=== PATIENT | male | born 1950 | race Caucasian/White ===

== ENCOUNTER 2016-11-06 11:33 | Emergency (ER) | payer OTHER ==
[~2016-11-06] VITALS: Ht 185.4 cm; Wt 80.9 kg
[~2016-11-06 11:33] MED LIST: ADULT LOW DOSE81 M1 PO; ADVIL200 MG PO; ASPIR 8181 M1 PO; ASPIR-LOW81 MG PO; ASPIRIN81 M2 PO; ATORVASTATIN CA40 MG PO; AUGMENTIN875 MG PO; Actonel PO; Ascorbic Acid,Ester- PO; BACTRIM,SEPT1 TABLET PO; CHEMO MEDICATION; CIPRO500 MG PO; CIPROFLOXACIN500 M1 PO; CITALOPRAM HBR10 MG PO; CLEOCIN300 MG PO; CLINDAMYCIN HC300 MG PO; CLOPIDOGREL75 MG PO; COLACE100 MG PO; DICLOXACILLIN500 MG PO; DOXYCYCLINE HY100 MG PO; DULCOLAX5 MG PO; ENDOCET 5-3251 EACH PO; EXTRA STRENGTH500 M1 PO; FENTANYL1 EAC4 TD; FERROUS SULFAT324 M1 PO; FLEXERIL10 MG PO; GABAPENTIN300 MG PO; GLUCOPHAGE; GLUCOPHAGE1000 MG PO; GLUCOTROL5 MG PO; GLYBURIDE5 MG PO; GRALISE300 MG PO; HUMALOG; HUMALOG100 UNIT/1 SC; HUMULIN R100 UNITS/ SC; HYDROCODON-ACE1 EAC7 PO; KEFLEX500 MG PO; KEFLEX750 MG PO; KETOCONAZOLE60 GM TP; LANCETS1 EACH MC; LANTUS SQ; LANTUS100 UNIT/1 SQ; LEVAQUIN500 MG PO; LEVEMIR; LEVEMIR FL100 UNIT/1 SC; LEVEMIR FL100 UNITS/ SC; LEVEMIR100 UNIT/2 SC; LEVOFLOXACIN500 MG PO; LIDODERM 5% P1 PATCH TD; LISINOPRIL10 MG PO; LISINOPRIL2.5 MG PO; LOPRESSOR50 MG PO; METFORMIN HCL1000 MG PO; MOBIC15 MG PO; MOBIC7.5 MG PO; MOTRIN800 MG PO; NAPROSYN500 MG PO; NAPROXEN500 MG PO; NEURONTIN300 MG PO; NITROSTAT,NITR0.4 M1 SL; NORCO 5/3251 TABLET PO; NOVOLOG 10100 UNITS/ SC; NOVOLOG PE100 UNITS/ SC; NOVOLOG100 UNIT/2 SQ; OMEPRAZOLE20 MG PO; OXYCODONE HCL5 MG PO; OxyCONTIN PO; PEN-VEE K,VEET500 MG PO; PERCOCET 10/1 TABLET PO; PERCOCET 5-3251 EACH PO; PERCOCET 5/31 TABLET PO; PRILOSEC20 MG PO; PROTONIX40 MG PO; SENOKOT S,PE1 TABLET PO; SENOKOT,SENN1 TABLET PO; SKELAXIN800 MG PO; TARCEVA; TORADOL10 MG PO; TRAMADOL HCL50 MG PO; TYLENOL ARTHRI650 MG PO; TYLENOL EXTRA500 MG PO; TYLENOL REGULA325 MG PO; TYLENOL WITH C1 EACH PO; Tylenol Regular Stre PO; ULTRACET1 TABLET PO; ULTRAM50 MG PO; VALIUM5 MG PO; VANCOMYCIN1 GM/150 M IV; VICODIN 5-3001 EACH PO; ZESTRIL,PRINIVI20 MG PO; ZESTRIL10 MG PO; ZESTRIL2.5 MG PO; ZOFRAN ODT8 MG PO; Zestril,Prinivil PO; [UNRECOGNIZED DRUG - REMARK]
[2016-11-06 13:31] VITALS: BP 148/68
== END 2016-11-06 13:31 | disposition home or self-care (01) ==
LOC: EME 11:33
DX: M54.9 Dorsalgia, unspecified (principal); M25.561 Pain in right knee; M25.562 Pain in left knee; W18.30XA Fall on same level, unspecified, initial encounter; Y93.01 Activity, walking, marching and hiking; E11.9 Type 2 diabetes mellitus without complications; E78.5 Hyperlipidemia, unspecified; I10 Essential (primary) hypertension; I25.2 Old myocardial infarction; Z85.028 Personal history of other malignant neoplasm of stomach; Z89.512 Acquired absence of left leg below knee; Z79.84 Long term (current) use of oral hypoglycemic drugs; F17.200 Nicotine dependence, unspecified, uncomplicated
CPT/HCPCS: 72100; 99281; 99283

== ENCOUNTER 2016-11-10 11:31 | Emergency (ER) | payer OTHER ==
[~2016-11-10] VITALS: Ht 185.4 cm; Wt 80.9 kg
[2016-11-10 12:13] VITALS: BP 139/92
== END 2016-11-10 12:15 | disposition left against medical advice (07) ==
LOC: EME 11:31
DX: M79.604 Pain in right leg (principal); M79.605 Pain in left leg; M54.9 Dorsalgia, unspecified; W19.XXXA Unspecified fall, initial encounter; Z53.21 Procedure and treatment not carried out due to patient leaving prior to being seen by health care provider

== ENCOUNTER 2016-11-21 16:47 | Emergency (ER) | payer OTHER ==
[~2016-11-21] VITALS: Ht 177.8 cm; Wt 72.7 kg
[2016-11-21 16:50] VITALS: BP 163/66
== END 2016-11-21 17:53 | disposition left against medical advice (07) ==
LOC: EME 16:47
DX: R07.81 Pleurodynia (principal); Z91.81 History of falling; R29.6 Repeated falls; Z53.21 Procedure and treatment not carried out due to patient leaving prior to being seen by health care provider

== ENCOUNTER 2016-11-23 14:11 | Emergency (ER) | payer OTHER ==
[~2016-11-23] VITALS: Ht 185.4 cm; Wt 80.9 kg
[2016-11-23 15:35] VITALS: BP 170/65
== END 2016-11-23 15:56 | disposition home or self-care (01) ==
LOC: EME 14:11
DX: M25.562 Pain in left knee (principal); M54.9 Dorsalgia, unspecified; Z91.81 History of falling; Z88.6 Allergy status to analgesic agent; Z87.891 Personal history of nicotine dependence; E11.9 Type 2 diabetes mellitus without complications; Z79.84 Long term (current) use of oral hypoglycemic drugs; Z79.4 Long term (current) use of insulin
CPT/HCPCS: 99281; 99283

== ENCOUNTER 2016-12-15 13:48 | Emergency (ER) | payer OTHER ==
[~2016-12-15] VITALS: Ht 185.4 cm; Wt 80.9 kg
[2016-12-15 13:54] VITALS: BP 142/76
[2016-12-15] MEDS ORDERED: VIBRAMYCIN100 MG PO (16:14)
[2016-12-15] MEDS ORDERED: MOBIC7.5 MG PO (16:14)
== END 2016-12-15 16:48 | disposition home or self-care (01) ==
LOC: EME 13:48
DX: T87.9 Unspecified complications of amputation stump (principal); L89.899 Pressure ulcer of other site, unspecified stage; Z89.512 Acquired absence of left leg below knee; F17.200 Nicotine dependence, unspecified, uncomplicated; Z59.0 Homelessness; Z88.6 Allergy status to analgesic agent; E11.9 Type 2 diabetes mellitus without complications; Z79.4 Long term (current) use of insulin; Z79.84 Long term (current) use of oral hypoglycemic drugs; Z85.028 Personal history of other malignant neoplasm of stomach; E78.5 Hyperlipidemia, unspecified; I10 Essential (primary) hypertension; I25.2 Old myocardial infarction; Z91.81 History of falling; Z91.19 Patient's noncompliance with other medical treatment and regimen
CPT/HCPCS: 99281; 99284

== ENCOUNTER 2016-12-17 00:07 | Emergency (ER) | payer OTHER ==
[~2016-12-17] VITALS: Ht 185.4 cm; Wt 80.9 kg
[~2016-12-17 00:07] MED LIST changes: +VIBRAMYCIN100 MG PO
[2016-12-17 00:11] VITALS: BP 161/81
[2016-12-17] MEDS ORDERED: NAPROSYN500 MG PO (01:55)
== END 2016-12-17 02:12 | disposition home or self-care (01) ==
LOC: EME 00:07
DX: M54.5 Low back pain (principal); M79.604 Pain in right leg; Z91.81 History of falling; Z89.512 Acquired absence of left leg below knee; Z79.4 Long term (current) use of insulin; F17.200 Nicotine dependence, unspecified, uncomplicated
CPT/HCPCS: 99281; 99283

== ENCOUNTER 2016-12-20 20:46 | Emergency (ER) | payer OTHER ==
[~2016-12-20] VITALS: Ht 185.4 cm; Wt 72.0 kg
[2016-12-20 21:06] VITALS: BP 158/84
== END 2016-12-20 21:30 | disposition left against medical advice (07) ==
LOC: EME 20:46
DX: M79.604 Pain in right leg (principal); Z53.21 Procedure and treatment not carried out due to patient leaving prior to being seen by health care provider

== ENCOUNTER 2016-12-26 23:49 | Emergency (ER) | payer OTHER ==
[~2016-12-26] VITALS: Ht 185.4 cm; Wt 72.0 kg
[2016-12-26 23:52] VITALS: BP 173/64
== END 2016-12-27 00:41 | disposition left against medical advice (07) ==
LOC: EME 23:49
DX: M79.605 Pain in left leg (principal); Z53.21 Procedure and treatment not carried out due to patient leaving prior to being seen by health care provider
CPT/HCPCS: 99281; 99283

== ENCOUNTER 2017-01-13 18:02 | Emergency (ER) | payer OTHER ==
[~2017-01-13] VITALS: Ht 185.4 cm; Wt 84.0 kg
[2017-01-13 18:40] VITALS: BP 162/66
== END 2017-01-13 21:10 | disposition left against medical advice (07) ==
LOC: EME 18:02
DX: M79.605 Pain in left leg (principal); Z53.21 Procedure and treatment not carried out due to patient leaving prior to being seen by health care provider; F17.200 Nicotine dependence, unspecified, uncomplicated; E11.9 Type 2 diabetes mellitus without complications; I10 Essential (primary) hypertension

== ENCOUNTER 2017-01-17 16:53 | Emergency (ER) | payer OTHER ==
[~2017-01-17] VITALS: Ht 182.9 cm; Wt 81.8 kg
[2017-01-17] MEDS ORDERED: TESSALON200 MG PO (18:16)
[2017-01-17 18:55] VITALS: BP 140/66
== END 2017-01-17 18:56 | disposition home or self-care (01) ==
LOC: EME 16:53
DX: J06.9 Acute upper respiratory infection, unspecified (principal); F17.200 Nicotine dependence, unspecified, uncomplicated
CPT/HCPCS: 71010; 99281; 99284

== ENCOUNTER 2017-01-26 02:56 | Emergency (ER) | payer OTHER ==
[~2017-01-26] VITALS: Ht 182.9 cm; Wt 81.8 kg
[~2017-01-26 02:56] MED LIST changes: +TESSALON200 MG PO
[2017-01-26] MEDS ORDERED: KEFLEX500 MG PO (04:07)
[2017-01-26 04:27] VITALS: BP 166/65
== END 2017-01-26 04:33 | disposition home or self-care (01) ==
LOC: EXP 02:56 → EME 02:56 → EXP 04:33
DX: S80.02XA Contusion of left knee, initial encounter (principal); L03.116 Cellulitis of left lower limb; W10.8XXA Fall (on) (from) other stairs and steps, initial encounter
CPT/HCPCS: 73564; 99281; 99283

== ENCOUNTER 2017-01-26 23:53 | Emergency (ER) | payer OTHER ==
[~2017-01-26] VITALS: Ht 182.9 cm; Wt 82.7 kg
[2017-01-27] VITALS: BP 151/61
== END 2017-01-27 09:06 | disposition home or self-care (01) ==
LOC: EME 23:53
DX: S80.01XA Contusion of right knee, initial encounter (principal); S80.211A Abrasion, right knee, initial encounter; W18.30XA Fall on same level, unspecified, initial encounter
CPT/HCPCS: 73564; 99281; 99283

== ENCOUNTER 2017-02-01 07:09 | Emergency (ER) | payer OTHER ==
[~2017-02-01] VITALS: Ht 182.9 cm; Wt 82.0 kg
[2017-02-01 08:36] LABS: BASOPHIL COUNT 0.1 K/uL (0-0.1); EOSINOPHIL (%) 4.3 % (0-5); EOSINOPHIL COUNT 0.3 K/uL (0-0.3); IMMATURE GRANULOCYTE (%) 0.3 % (0.0-0.7); INSTRUMENT ABS NEUTROPHIL CT 3.5 K/uL; LYMPHOCYTE COUNT 2.4 K/uL (1.0-2.8); MCH 28.1 PG (29.0-34.0); MCHC 33.6 G/DL (30.0-36.0); MCV 83.7 FL (86-99); MEAN PLAT.VOLUME 12.2 uM^3 (9.0-12.4); MONOCYTE (%) 9.3 % (3-12); MONOCYTE COUNT 0.6 K/uL (0-0.8); NEUTROPHIL COUNT 3.5 K/uL (1.8-6.4); PLATELET COUNT 174 K/uL (156-360); RBC DIS.WIDTH-CV 12.3 % (11.8-14.6); RBC DIS.WIDTH-SD 37.2 % (39-53); RED BLOOD COUNT 4.66 M/uL (4.00-5.50); WHITE BLOOD COUNT 6.9 K/uL (4.1-10.2)
[2017-02-01 08:48] LABS: CHLORIDE 98 mEq/L (99-109); POTASSIUM 4.3 mEq/L (3.7-5.4); SODIUM 131 mEq/L (136-147)
[2017-02-01 08:50] LABS: GLUCOSE 618 mg/dL (70-99)
[2017-02-01 08:51] LABS: ANION GAP 11 MEQ/L (2-14)
[2017-02-01 08:54] LABS: GFR ESTIMATE (CALCULATED) 59 mL/min/
[2017-02-01 08:55] LABS: UREA NITROGEN (BUN) 22 mg/dL (9-23)
[2017-02-01 09:00] VITALS: BP 00/00
[2017-02-01 12:25] LABS: POINT-OF-CARE METER ID UU13113702
== END 2017-02-01 10:10 | disposition left against medical advice (07) ==
LOC: EME 07:09
PROVIDERS: Emergency Medicine; Physician Assistant
DX: E11.65 Type 2 diabetes mellitus with hyperglycemia (principal); S80.02XA Contusion of left knee, initial encounter; M54.9 Dorsalgia, unspecified; W10.9XXA Fall (on) (from) unspecified stairs and steps, initial encounter; Z91.81 History of falling; Z79.4 Long term (current) use of insulin; Z89.512 Acquired absence of left leg below knee; Z86.14 Personal history of Methicillin resistant Staphylococcus aureus infection; F17.200 Nicotine dependence, unspecified, uncomplicated; Z59.0 Homelessness
CPT/HCPCS: 73564; 80048; 82948; 85025; 87070; 87075; 87205

== ENCOUNTER 2017-02-23 17:46 | Emergency (ER) | payer OTHER ==
[~2017-02-23] VITALS: Ht 182.9 cm; Wt 85.0 kg
[2017-02-23 18:53] VITALS: BP 148/81
== END 2017-02-23 19:01 | disposition home or self-care (01) ==
LOC: EME 17:46
DX: M25.561 Pain in right knee (principal); Z91.81 History of falling; G89.29 Other chronic pain; E11.9 Type 2 diabetes mellitus without complications; Z79.4 Long term (current) use of insulin; F17.200 Nicotine dependence, unspecified, uncomplicated
CPT/HCPCS: 99281; 99282

== ENCOUNTER 2017-02-27 17:51 | Emergency (ER) | payer OTHER ==
[~2017-02-27] VITALS: Ht 188 cm; Wt 90.9 kg
[2017-02-27 19:46] VITALS: BP 130/80
== END 2017-02-27 19:46 | disposition home or self-care (01) ==
LOC: EME 17:51
DX: S80.01XA Contusion of right knee, initial encounter (principal); W19.XXXA Unspecified fall, initial encounter
CPT/HCPCS: 73560; 99281; 99284

== ENCOUNTER 2017-03-05 15:57 | Emergency (ER) | payer OTHER ==
[~2017-03-05] VITALS: Ht 182.9 cm; Wt 80.9 kg
[2017-03-05 16:00] VITALS: BP 143/64
== END 2017-03-05 16:27 | disposition home or self-care (01) ==
LOC: EME 15:57
DX: S80.11XA Contusion of right lower leg, initial encounter (principal); W10.9XXA Fall (on) (from) unspecified stairs and steps, initial encounter; Z91.81 History of falling; E11.9 Type 2 diabetes mellitus without complications; Z79.84 Long term (current) use of oral hypoglycemic drugs; Z79.4 Long term (current) use of insulin; F17.200 Nicotine dependence, unspecified, uncomplicated
CPT/HCPCS: 99281; 99283

== ENCOUNTER 2017-03-18 09:46 | Emergency (ER) | payer OTHER ==
[~2017-03-18] VITALS: Ht 195.6 cm; Wt 80.9 kg
[2017-03-18 11:20] VITALS: BP 134/57
== END 2017-03-18 11:21 | disposition left against medical advice (07) ==
LOC: EME 09:46
DX: M25.561 Pain in right knee (principal); M54.9 Dorsalgia, unspecified; W18.30XA Fall on same level, unspecified, initial encounter; R29.6 Repeated falls; Z89.612 Acquired absence of left leg above knee; Z59.0 Homelessness; F17.200 Nicotine dependence, unspecified, uncomplicated
CPT/HCPCS: 99281; 99283

== ENCOUNTER 2017-03-19 18:28 | Emergency (ER) | payer OTHER ==
[~2017-03-19] VITALS: Ht 185.4 cm; Wt 80.9 kg
[2017-03-19 19:30] VITALS: BP 00/0
== END 2017-03-19 19:59 | disposition left against medical advice (07) ==
LOC: EME 18:28
DX: S09.8XXA Other specified injuries of head, initial encounter (principal); S00.81XA Abrasion of other part of head, initial encounter; S60.811A Abrasion of right wrist, initial encounter; X58.XXXA Exposure to other specified factors, initial encounter; E11.9 Type 2 diabetes mellitus without complications; Z79.4 Long term (current) use of insulin; Z59.8 Other problems related to housing and economic circumstances; F17.200 Nicotine dependence, unspecified, uncomplicated
CPT/HCPCS: 99281; 99284

== ENCOUNTER 2017-03-28 22:52 | Emergency (ER) | payer OTHER ==
[~2017-03-28] VITALS: Ht 177.8 cm; Wt 75.0 kg
[2017-03-28 23:09] VITALS: BP 138/88
== END 2017-03-29 04:09 | disposition home or self-care (01) ==
LOC: EME 22:52
DX: S93.401A Sprain of unspecified ligament of right ankle, initial encounter (principal); W01.0XXA Fall on same level from slipping, tripping and stumbling without subsequent striking against object, initial encounter; E11.9 Type 2 diabetes mellitus without complications; I10 Essential (primary) hypertension; Z85.028 Personal history of other malignant neoplasm of stomach; Z89.512 Acquired absence of left leg below knee; F17.200 Nicotine dependence, unspecified, uncomplicated
CPT/HCPCS: 73610; 73630; 99281; 99284

== ENCOUNTER 2017-04-18 18:58 | Observation (INO) | payer OTHER ==
[~2017-04-18] VITALS: Ht 185.4 cm; Wt 80.9 kg
[2017-04-18 20:16] LABS: CARBON DIOXIDE (BICARBONATE) 20.8 MEQ/L (20-31)
[2017-04-18 20:17] LABS: HEMATOCRIT 42.7 % (38.0-50.0); MCH 29.3 PG (29.0-34.0); MCHC 35.6 G/DL (30.0-36.0); MCV 82.4 FL (86-99); MEAN PLAT.VOLUME 12.3 uM^3 (9.0-12.4); PLATELET COUNT 174 K/uL (156-360); RBC DIS.WIDTH-CV 12.2 % (11.8-14.6); RBC DIS.WIDTH-SD 36.9 % (39-53); RED BLOOD COUNT 5.18 M/uL (4.00-5.50); WHITE BLOOD COUNT 10.4 K/uL (4.1-10.2)
[2017-04-18 20:23] LABS: CHLORIDE 98 mEq/L (99-109); POTASSIUM 4.2 mEq/L (3.7-5.4); SODIUM 128 mEq/L (136-147)
[2017-04-18 20:26] LABS: ANION GAP 12 MEQ/L (2-14)
[2017-04-18 20:29] LABS: GFR ESTIMATE (CALCULATED) 38 mL/min/
[2017-04-18 20:30] LABS: UREA NITROGEN (BUN) 24 mg/dL (9-23)
[2017-04-18 20:33] LABS: GLUCOSE 629 mg/dL (70-99)
[2017-04-18 22:52] LABS: POINT-OF-CARE METER ID UU13113702
[2017-04-19 02:59] LABS: ADD MIUA? YES; BILIRUBIN NEGATIVE; BLOOD SMALL; COLOR YELLOW ((YELLOW)); GLUCOSE (STRIP) >=500; KETONES NEGATIVE; LEUKOCYTES TRACE; NITRITE NEGATIVE; PROTEIN (STRIP) 30; SPECIFIC GRAVITY 1.021 (1.000-1.030); UROBILINOGEN 0.2 MG/DL (0.2-1.0)
[2017-04-19 03:12] LABS: BACTERIA NONE SEEN /HPF; EPITHELIAL CELLS RARE /HPF; MUCUS NONE SEEN /LPF; RED BLOOD CELLS 0-5 /HPF (0-5); UCUL ADDED? NO
[2017-04-19 06:19] LABS: ANION GAP 7 MEQ/L (2-14); CHLORIDE 109 MEQ/L (99-109); POTASSIUM 3.6 MEQ/L (3.7-5.4); SAMPLE HEMOLYSIS CHECK 0; SAMPLE ICTERIC CHECK 0; SAMPLE LIPEMIA CHECK 0; UREA NITROGEN (BUN) 17 mg/dL (9-23)
[2017-04-19 06:35] LABS: GFR ESTIMATE (CALCULATED) > 59 mL/min/; GLUCOSE 277 mg/dL (70-99); SODIUM 136 MEQ/L (136-147)
[2017-04-19 09:36] LABS: POINT-OF-CARE METER ID UU13113702
[2017-04-19 12:28] LABS: POINT-OF-CARE METER ID UU14174225
[2017-04-19 13:09] LABS: Estimated Average Glucose 372 mg/dL (70-123); HEMOGLOBIN A1c (GLYCOHEMOGLOB) 14.6 % HGB (Below 5.7)
[2017-04-19 16:00] VITALS: BP 145/66
[2017-04-19 17:09] LABS: POINT-OF-CARE METER ID UU14174225
[2017-04-19 19:32] VITALS: BP 117/58
[2017-04-19 21:51] LABS: POINT-OF-CARE METER ID UU14174225
[2017-04-20 00:01] VITALS: BP 156/70
[2017-04-20 04:07] VITALS: BP 164/71
[2017-04-20 06:53] LABS: HEMATOCRIT 36.2 % (38.0-50.0); MCH 28.9 PG (29.0-34.0); MEAN PLAT.VOLUME 12.2 uM^3 (9.0-12.4); PLATELET COUNT 150 K/uL (156-360); RBC DIS.WIDTH-CV 12.5 % (11.8-14.6); RBC DIS.WIDTH-SD 38.4 % (39-53); RED BLOOD COUNT 4.26 M/uL (4.00-5.50); WHITE BLOOD COUNT 8.2 K/uL (4.1-10.2)
[2017-04-20 07:15] LABS: ANION GAP 7 MEQ/L (2-14); CHLORIDE 113 MEQ/L (99-109); GFR ESTIMATE (CALCULATED) > 59 mL/min/; GLUCOSE 51 mg/dL (70-99); POTASSIUM 3.6 MEQ/L (3.7-5.4); SAMPLE HEMOLYSIS CHECK 0; SAMPLE ICTERIC CHECK 0; SAMPLE LIPEMIA CHECK 0; SODIUM 142 MEQ/L (136-147); UREA NITROGEN (BUN) 14 mg/dL (9-23)
[2017-04-20 08:07] VITALS: BP 133/50
[2017-04-20 11:38] VITALS: BP 157/68
[2017-04-20 11:55] LABS: POINT-OF-CARE METER ID UU14174225
[2017-04-20] MEDS ORDERED: FAMOTIDINE20 MG PO (13:45)
[2017-04-20] MEDS ORDERED: NOVOLOG PE100 UNITS/ SC ×2 (13:45→16:46)
[2017-04-20] MEDS ORDERED: HUMULIN N100 UNITS/ SC (14:03)
[2017-04-20 15:14] VITALS: BP 141/64
[2017-04-20 16:36] LABS: POINT-OF-CARE METER ID UU14174225
== END 2017-04-20 18:07 | disposition home or self-care (01) ==
LOC: EME 18:58 → 5SOUTH 04-19 03:06 → EDOF 04-19 03:06 → 5SOUTH 04-19 03:06
PROVIDERS: Emergency Medicine; Hospitalist; Internal Medicine
DX: E11.65 Type 2 diabetes mellitus with hyperglycemia (principal); Z91.19 Patient's noncompliance with other medical treatment and regimen; N17.9 Acute kidney failure, unspecified; E87.2 Acidosis; E86.0 Dehydration; E87.1 Hypo-osmolality and hyponatremia; M79.604 Pain in right leg; E11.40 Type 2 diabetes mellitus with diabetic neuropathy, unspecified; E11.51 Type 2 diabetes mellitus with diabetic peripheral angiopathy without gangrene; Z79.4 Long term (current) use of insulin; Z89.512 Acquired absence of left leg below knee
CPT/HCPCS: 71020; 73610; 80048; 81003; 82803; 82948; 83036; 83605; 85027; 87086; 93971; 99281; 99285; G0378; J0696; J1644; J1815; J7030; J7050

== ENCOUNTER 2017-05-02 09:05 | Emergency (ER) | payer OTHER ==
[~2017-05-02] VITALS: Ht 186.7 cm; Wt 82.2 kg
[~2017-05-02 09:05] MED LIST changes: +FAMOTIDINE20 MG PO; +HUMULIN N100 UNITS/ SC
[2017-05-02 14:38] VITALS: BP 180/61
== END 2017-05-02 14:39 | disposition home or self-care (01) ==
LOC: EME 09:05
DX: S93.401A Sprain of unspecified ligament of right ankle, initial encounter (principal); S20.211A Contusion of right front wall of thorax, initial encounter; S80.11XA Contusion of right lower leg, initial encounter; R51 Headache; W19.XXXA Unspecified fall, initial encounter; Z89.512 Acquired absence of left leg below knee; E11.9 Type 2 diabetes mellitus without complications; Z79.84 Long term (current) use of oral hypoglycemic drugs; F17.200 Nicotine dependence, unspecified, uncomplicated
CPT/HCPCS: 71020; 73610; 99281; 99283

== ENCOUNTER 2017-05-03 15:58 | Emergency (ER) | payer OTHER | END 2017-05-03 16:20 | disposition left against medical advice (07) | LOC: EME 15:58 | DX: M79.604 Pain in right leg (principal); Z53.21 Procedure and treatment not carried out due to patient leaving prior to being seen by health care provider ==

== ENCOUNTER 2017-05-06 08:26 | Emergency (ER) | payer OTHER ==
[~2017-05-06] VITALS: Ht 182.9 cm; Wt 85.2 kg
[2017-05-06 12:51] LABS: ADD MIUA? YES; BILIRUBIN NEGATIVE; BLOOD SMALL; COLOR YELLOW ((YELLOW)); GLUCOSE (STRIP) >=500; KETONES NEGATIVE; LEUKOCYTES MODERATE; NITRITE NEGATIVE; PROTEIN (STRIP) 100; SPECIFIC GRAVITY 1.029 (1.000-1.030); UROBILINOGEN 0.2 MG/DL (0.2-1.0)
[2017-05-06 13:01] LABS: BACTERIA NONE SEEN /HPF; EPITHELIAL CELLS RARE /HPF; MUCUS NONE SEEN /LPF; WHITE BLOOD CELLS 30-40 /HPF (0-5)
[2017-05-06 14:55] LABS: BASOPHIL COUNT 0.1 K/uL (0-0.1); EOSINOPHIL COUNT 0.3 K/uL (0-0.3); HEMATOCRIT 42.2 % (38.0-50.0); IMMATURE GRANULOCYTE (%) 0.4 % (0.0-0.7); INSTRUMENT ABS NEUTROPHIL CT 3.9 K/uL; LYMPHOCYTE COUNT 2.6 K/uL (1.0-2.8); MCH 28.5 PG (29.0-34.0); MCHC 33.9 G/DL (30.0-36.0); MCV 84.2 FL (86-99); MEAN PLAT.VOLUME 11.9 uM^3 (9.0-12.4); MONOCYTE (%) 8.9 % (3-12); MONOCYTE COUNT 0.7 K/uL (0-0.8); NEUTROPHIL (%) 51.9 % (45-76); NEUTROPHIL COUNT 3.9 K/uL (1.8-6.4); PLATELET COUNT 158 K/uL (156-360); RBC DIS.WIDTH-CV 12.7 % (11.8-14.6); RBC DIS.WIDTH-SD 38.4 % (39-53); RED BLOOD COUNT 5.01 M/uL (4.00-5.50); WHITE BLOOD COUNT 7.6 K/uL (4.1-10.2)
[2017-05-06 15:13] LABS: CHLORIDE 103 mEq/L (99-109); POTASSIUM 3.3 mEq/L (3.7-5.4); SODIUM 137 mEq/L (136-147)
[2017-05-06 15:15] LABS: GLUCOSE 341 mg/dL (70-99)
[2017-05-06 15:16] LABS: ANION GAP 8 MEQ/L (2-14)
[2017-05-06 15:17] LABS: TOTAL BILIRUBIN 0.7 mg/dL (0.0-1.0)
[2017-05-06] MEDS ORDERED: KEFLEX500 MG PO (15:18)
[2017-05-06 15:19] LABS: ALKALINE PHOSPHATASE 82 IU/L (3-129); GFR ESTIMATE (CALCULATED) > 59 mL/min/
[2017-05-06 15:20] LABS: UREA NITROGEN (BUN) 17 mg/dL (9-23)
[2017-05-06 15:22] LABS: LIPASE 19 U/L (1.0-51.0)
[2017-05-06] MEDS ORDERED: TRAMADOL HCL50 MG PO (15:36)
[2017-05-06 15:39] VITALS: BP 192/59
== END 2017-05-06 15:40 | disposition home or self-care (01) ==
LOC: EME 08:26
PROVIDERS: Physician Assistant
DX: M79.604 Pain in right leg (principal); N39.0 Urinary tract infection, site not specified; E11.9 Type 2 diabetes mellitus without complications; G89.29 Other chronic pain; Z89.512 Acquired absence of left leg below knee; Z91.81 History of falling; Z79.4 Long term (current) use of insulin
CPT/HCPCS: 80053; 81003; 83690; 85025; 87086; 93971; 99281; 99283

== ENCOUNTER 2017-05-10 09:24 | Emergency (ER) | payer OTHER ==
[~2017-05-10] VITALS: Ht 182.9 cm; Wt 85.2 kg
[2017-05-10 09:53] VITALS: BP 154/61
== END 2017-05-10 10:41 | disposition left against medical advice (07) ==
LOC: EME 09:24
DX: M79.604 Pain in right leg (principal); R11.0 Nausea; G89.29 Other chronic pain; Z53.21 Procedure and treatment not carried out due to patient leaving prior to being seen by health care provider

== ENCOUNTER 2017-05-10 16:07 | Emergency (ER) | payer OTHER | END 2017-05-10 16:45 | disposition left against medical advice (07) | LOC: EME 16:07 | DX: M79.604 Pain in right leg (principal); Z53.21 Procedure and treatment not carried out due to patient leaving prior to being seen by health care provider ==

== ENCOUNTER 2017-05-17 10:22 | Emergency (ER) | payer OTHER ==
[~2017-05-17] VITALS: Ht 182.9 cm; Wt 85.2 kg
[2017-05-17 11:01] LABS: HEMATOCRIT 41.9 % (38.0-50.0); MCH 28.5 PG (29.0-34.0); MCHC 34.1 G/DL (30.0-36.0); MCV 83.6 FL (86-99); MEAN PLAT.VOLUME 12.1 uM^3 (9.0-12.4); PLATELET COUNT 164 K/uL (156-360); RBC DIS.WIDTH-CV 12.5 % (11.8-14.6); RBC DIS.WIDTH-SD 38.4 % (39-53); RED BLOOD COUNT 5.01 M/uL (4.00-5.50); WHITE BLOOD COUNT 7.1 K/uL (4.1-10.2)
[2017-05-17 11:14] LABS: CHLORIDE 101 mEq/L (99-109); SODIUM 138 mEq/L (136-147)
[2017-05-17 11:16] LABS: GLUCOSE 379 mg/dL (70-99)
[2017-05-17 11:18] LABS: ANION GAP 15 MEQ/L (2-14); TOTAL BILIRUBIN 0.9 mg/dL (0.0-1.0)
[2017-05-17 11:20] LABS: ALKALINE PHOSPHATASE 74 IU/L (3-129); GFR ESTIMATE (CALCULATED) 54 mL/min/
[2017-05-17 11:21] LABS: UREA NITROGEN (BUN) 18 mg/dL (9-23)
[2017-05-17 12:41] LABS: POINT-OF-CARE METER ID UU13113702
[2017-05-17 13:37] VITALS: BP 141/49
== END 2017-05-17 13:38 | disposition home or self-care (01) ==
LOC: EME → EDBD 10:22 → EME 13:38
PROVIDERS: Nurse Practitioner Family
DX: E11.65 Type 2 diabetes mellitus with hyperglycemia (principal); T38.3X6A Underdosing of insulin and oral hypoglycemic [antidiabetic] drugs, initial encounter; Z91.120 Patient's intentional underdosing of medication regimen due to financial hardship; Z79.4 Long term (current) use of insulin; F17.200 Nicotine dependence, unspecified, uncomplicated; I25.2 Old myocardial infarction; Z79.84 Long term (current) use of oral hypoglycemic drugs
CPT/HCPCS: 80053; 81003; 82948; 85027; 99281; 99284; J2405; J7030

== ENCOUNTER 2017-05-17 21:14 | Emergency (ER) | payer OTHER ==
[~2017-05-17] VITALS: Ht 182.9 cm; Wt 78.0 kg
[2017-05-17 23:22] LABS: MCH 28.9 PG (29.0-34.0); MCHC 34.4 G/DL (30.0-36.0); MCV 84.2 FL (86-99); MEAN PLAT.VOLUME 11.8 uM^3 (9.0-12.4); PLATELET COUNT 163 K/uL (156-360); RBC DIS.WIDTH-CV 12.4 % (11.8-14.6); RBC DIS.WIDTH-SD 38.4 % (39-53); RED BLOOD COUNT 4.63 M/uL (4.00-5.50); WHITE BLOOD COUNT 7.8 K/uL (4.1-10.2)
[2017-05-17 23:38] LABS: CHLORIDE 104 mEq/L (99-109); POTASSIUM 3.9 mEq/L (3.7-5.4); SODIUM 140 mEq/L (136-147)
[2017-05-17 23:40] LABS: GLUCOSE 349 mg/dL (70-99)
[2017-05-17 23:41] LABS: ANION GAP 11 MEQ/L (2-14)
[2017-05-17 23:43] LABS: GFR ESTIMATE (CALCULATED) 54 mL/min/
[2017-05-17 23:44] LABS: UREA NITROGEN (BUN) 16 mg/dL (9-23)
[2017-05-18 00:34] VITALS: BP 154/70
== END 2017-05-18 00:49 | disposition home or self-care (01) ==
LOC: EME 21:14
PROVIDERS: Emergency Medicine
DX: S20.211A Contusion of right front wall of thorax, initial encounter (principal); M25.561 Pain in right knee; M79.671 Pain in right foot; W07.XXXA Fall from chair, initial encounter; E11.65 Type 2 diabetes mellitus with hyperglycemia; Z79.84 Long term (current) use of oral hypoglycemic drugs; R10.9 Unspecified abdominal pain; R11.10 Vomiting, unspecified; F17.200 Nicotine dependence, unspecified, uncomplicated
CPT/HCPCS: 71101; 73560; 73630; 80048; 85027; 94640; 99281; 99285

== ENCOUNTER 2017-05-19 11:28 | Emergency (ER) | payer OTHER ==
[~2017-05-19] VITALS: Ht 185.4 cm; Wt 81.0 kg
[2017-05-19 12:34] LABS: POINT-OF-CARE METER ID UU13113778
[2017-05-19 12:51] VITALS: BP 171/74
== END 2017-05-19 12:52 | disposition home or self-care (01) ==
LOC: EME 11:28
PROVIDERS: Nurse Practitioner Family
DX: E11.65 Type 2 diabetes mellitus with hyperglycemia (principal); M25.551 Pain in right hip; M79.601 Pain in right arm; M79.604 Pain in right leg; Z89.512 Acquired absence of left leg below knee; W10.9XXA Fall (on) (from) unspecified stairs and steps, initial encounter; Y92.007 Garden or yard of unspecified non-institutional (private) residence as the place of occurrence of the external cause; Z79.4 Long term (current) use of insulin; F17.200 Nicotine dependence, unspecified, uncomplicated
CPT/HCPCS: 82948; 99281; 99283

== ENCOUNTER 2017-05-22 15:10 | Emergency (ER) | payer OTHER | END 2017-05-22 15:48 | disposition left against medical advice (07) | LOC: EME 15:10 | DX: Z04.3 Encounter for examination and observation following other accident (principal); Z53.21 Procedure and treatment not carried out due to patient leaving prior to being seen by health care provider ==

== ENCOUNTER 2017-05-24 14:38 | Emergency (ER) | payer OTHER | END 2017-05-24 17:00 | disposition left against medical advice (07) | LOC: EME 14:38 | DX: M79.604 Pain in right leg (principal); Z53.21 Procedure and treatment not carried out due to patient leaving prior to being seen by health care provider ==

== ENCOUNTER 2017-05-26 04:04 | Emergency (ER) | payer OTHER ==
[~2017-05-26] VITALS: Ht 182.9 cm; Wt 79.9 kg
[2017-05-26 04:56] VITALS: BP 185/75
== END 2017-05-26 04:56 | disposition home or self-care (01) ==
LOC: EME → EDBD 04:04 → EME 04:56
DX: S93.401A Sprain of unspecified ligament of right ankle, initial encounter (principal); W10.9XXA Fall (on) (from) unspecified stairs and steps, initial encounter; F17.200 Nicotine dependence, unspecified, uncomplicated
CPT/HCPCS: 73564; 73610; 99281; 99283

== ENCOUNTER 2017-05-26 21:31 | Emergency (ER) | payer OTHER ==
[~2017-05-26] VITALS: Ht 185.4 cm; Wt 80.9 kg
[2017-05-26 23:07] VITALS: BP 137/62
== END 2017-05-26 23:08 | disposition home or self-care (01) ==
LOC: EME 21:31
DX: M79.604 Pain in right leg (principal); W01.0XXA Fall on same level from slipping, tripping and stumbling without subsequent striking against object, initial encounter; Y93.01 Activity, walking, marching and hiking; F17.200 Nicotine dependence, unspecified, uncomplicated
CPT/HCPCS: 99281; 99282

== ENCOUNTER 2017-05-27 18:23 | Emergency (ER) | payer OTHER ==
[~2017-05-27] VITALS: Ht 182.9 cm; Wt 80.9 kg
[2017-05-27 20:21] VITALS: BP 116/58
== END 2017-05-27 20:21 | disposition home or self-care (01) ==
LOC: EME 18:23
DX: M79.604 Pain in right leg (principal); G89.29 Other chronic pain; W18.30XA Fall on same level, unspecified, initial encounter; F17.200 Nicotine dependence, unspecified, uncomplicated; Z59.0 Homelessness
CPT/HCPCS: 99281; 99283

== ENCOUNTER 2017-05-28 15:18 | Emergency (ER) | payer OTHER ==
[~2017-05-28] VITALS: Ht 182.9 cm; Wt 98.0 kg
[2017-05-28 15:26] VITALS: BP 206/86
== END 2017-05-28 16:00 | disposition left against medical advice (07) ==
LOC: EME 15:18
DX: M54.5 Low back pain (principal); Z91.81 History of falling; R29.6 Repeated falls; Z53.21 Procedure and treatment not carried out due to patient leaving prior to being seen by health care provider

== ENCOUNTER 2017-05-29 19:03 | Emergency (ER) | payer OTHER ==
[~2017-05-29] VITALS: Ht 185.4 cm; Wt 80.9 kg
[2017-05-29 20:00] VITALS: BP 130/60
== END 2017-05-29 20:02 | disposition home or self-care (01) ==
LOC: EME 19:03
DX: M25.561 Pain in right knee (principal); M25.562 Pain in left knee; M54.5 Low back pain; W18.30XA Fall on same level, unspecified, initial encounter; Y93.01 Activity, walking, marching and hiking; Y92.480 Sidewalk as the place of occurrence of the external cause; Z89.512 Acquired absence of left leg below knee; Z79.84 Long term (current) use of oral hypoglycemic drugs; F17.200 Nicotine dependence, unspecified, uncomplicated
CPT/HCPCS: 99281; 99283

== ENCOUNTER 2017-05-30 18:30 | Emergency (ER) | payer OTHER ==
[~2017-05-30] VITALS: Ht 182.9 cm; Wt 80.9 kg
[2017-05-30 20:32] VITALS: BP 149/71
== END 2017-05-30 20:32 | disposition home or self-care (01) ==
LOC: EME 18:30
DX: S20.219A Contusion of unspecified front wall of thorax, initial encounter (principal); R29.6 Repeated falls; W19.XXXA Unspecified fall, initial encounter; Z89.519 Acquired absence of unspecified leg below knee; E11.9 Type 2 diabetes mellitus without complications; F17.200 Nicotine dependence, unspecified, uncomplicated; Z88.6 Allergy status to analgesic agent; Z79.4 Long term (current) use of insulin
CPT/HCPCS: 71020; 73564; 93005; 99281; 99283

== ENCOUNTER 2017-05-31 18:52 | Emergency (ER) | payer OTHER ==
[~2017-05-31] VITALS: Ht 182.9 cm; Wt 81.0 kg
[2017-05-31 19:22] VITALS: BP 158/69
== END 2017-05-31 19:23 | disposition home or self-care (01) ==
LOC: EME 18:52
DX: M25.571 Pain in right ankle and joints of right foot (principal); R29.6 Repeated falls; E11.9 Type 2 diabetes mellitus without complications; W19.XXXA Unspecified fall, initial encounter; Z88.6 Allergy status to analgesic agent; Z79.4 Long term (current) use of insulin
CPT/HCPCS: 99281; 99283

== ENCOUNTER → 2017-06-01 16:08 | Emergency (ER) | payer OTHER ==
[~2017-06-01] VITALS: Ht 182.9 cm; Wt 80.9 kg
== END | disposition left against medical advice (07) ==
LOC: EME 16:08
DX: M54.5 Low back pain (principal); Z91.81 History of falling

== ENCOUNTER 2017-06-01 22:00 | Emergency (ER) | payer OTHER ==
[~2017-06-01] VITALS: Ht 182.9 cm; Wt 80.9 kg
[2017-06-02 00:48] VITALS: BP 124/64
== END 2017-06-02 00:51 | disposition home or self-care (01) ==
LOC: EME 22:00
DX: Z04.3 Encounter for examination and observation following other accident (principal); Z91.81 History of falling; R53.83 Other fatigue; E11.9 Type 2 diabetes mellitus without complications; Z79.4 Long term (current) use of insulin; Z79.84 Long term (current) use of oral hypoglycemic drugs; F17.200 Nicotine dependence, unspecified, uncomplicated
CPT/HCPCS: 99281; 99283

== ENCOUNTER 2017-06-02 06:10 | Emergency (ER) | payer OTHER ==
[~2017-06-02] VITALS: Ht 182.9 cm; Wt 80.9 kg
[2017-06-02 06:41] VITALS: BP 158/65
== END 2017-06-02 06:42 | disposition home or self-care (01) ==
LOC: EME 06:10
DX: M54.9 Dorsalgia, unspecified (principal); W18.30XA Fall on same level, unspecified, initial encounter; Z91.81 History of falling; E11.9 Type 2 diabetes mellitus without complications; Z79.84 Long term (current) use of oral hypoglycemic drugs; F17.200 Nicotine dependence, unspecified, uncomplicated
CPT/HCPCS: 99281; 99283

== ENCOUNTER 2017-06-05 19:05 | Emergency (ER) | payer OTHER ==
[~2017-06-05] VITALS: Ht 182.9 cm; Wt 80.0 kg
[2017-06-05 19:26] VITALS: BP 139/73
== END 2017-06-05 20:05 | disposition home or self-care (01) ==
LOC: EME 19:05
DX: S80.01XA Contusion of right knee, initial encounter (principal); S40.021A Contusion of right upper arm, initial encounter; W01.0XXA Fall on same level from slipping, tripping and stumbling without subsequent striking against object, initial encounter; Z89.512 Acquired absence of left leg below knee; Z91.81 History of falling; E11.9 Type 2 diabetes mellitus without complications; Z79.84 Long term (current) use of oral hypoglycemic drugs; I25.2 Old myocardial infarction; F17.200 Nicotine dependence, unspecified, uncomplicated
CPT/HCPCS: 99281; 99283

== ENCOUNTER 2017-06-06 12:46 | Emergency (ER) | payer OTHER ==
[~2017-06-06] VITALS: Ht 182.9 cm; Wt 80.9 kg
[2017-06-06 15:46] VITALS: BP 0/0
== END 2017-06-06 15:45 | disposition left against medical advice (07) ==
LOC: EME 12:46
DX: S39.012A Strain of muscle, fascia and tendon of lower back, initial encounter (principal); W18.30XA Fall on same level, unspecified, initial encounter; I25.2 Old myocardial infarction; J45.909 Unspecified asthma, uncomplicated; E78.5 Hyperlipidemia, unspecified; I10 Essential (primary) hypertension; Z89.512 Acquired absence of left leg below knee; E11.9 Type 2 diabetes mellitus without complications; Z79.4 Long term (current) use of insulin; Z79.84 Long term (current) use of oral hypoglycemic drugs; F17.200 Nicotine dependence, unspecified, uncomplicated
CPT/HCPCS: 99281; 99284

== ENCOUNTER 2017-06-06 23:34 | Emergency (ER) | payer OTHER ==
[~2017-06-06] VITALS: Ht 182.9 cm; Wt 80.9 kg
[2017-06-07 00:57] VITALS: BP 153/87
== END 2017-06-07 01:29 | disposition home or self-care (01) ==
LOC: EME 23:34
DX: M79.604 Pain in right leg (principal); M79.605 Pain in left leg; W18.30XA Fall on same level, unspecified, initial encounter; Z91.81 History of falling; E11.9 Type 2 diabetes mellitus without complications; Z79.84 Long term (current) use of oral hypoglycemic drugs; Z89.512 Acquired absence of left leg below knee; F17.200 Nicotine dependence, unspecified, uncomplicated
CPT/HCPCS: 99281; 99284

== ENCOUNTER 2017-06-07 17:29 | Emergency (ER) | payer OTHER ==
[~2017-06-07] VITALS: Ht 182.9 cm; Wt 81.5 kg
[2017-06-07 20:45] VITALS: BP 144/84
== END 2017-06-07 20:45 | disposition home or self-care (01) ==
LOC: EME 17:29
DX: S80.211A Abrasion, right knee, initial encounter (principal); W19.XXXA Unspecified fall, initial encounter; Y92.512 Supermarket, store or market as the place of occurrence of the external cause; E11.9 Type 2 diabetes mellitus without complications; Z91.19 Patient's noncompliance with other medical treatment and regimen; F31.9 Bipolar disorder, unspecified; F10.10 Alcohol abuse, uncomplicated; F17.200 Nicotine dependence, unspecified, uncomplicated; Z89.612 Acquired absence of left leg above knee
CPT/HCPCS: 99281; 99283

== ENCOUNTER 2017-06-16 18:44 | Emergency (ER) | payer OTHER ==
[~2017-06-16] VITALS: Ht 185.4 cm; Wt 80.9 kg
[2017-06-16 19:22] VITALS: BP 122/58
== END 2017-06-16 19:49 | disposition home or self-care (01) ==
LOC: EME 18:44
DX: M79.606 Pain in leg, unspecified (principal); G89.29 Other chronic pain; F17.200 Nicotine dependence, unspecified, uncomplicated
CPT/HCPCS: 99281; 99283

== ENCOUNTER 2017-06-17 06:12 | Emergency (ER) | payer OTHER ==
[~2017-06-17] VITALS: Ht 185.4 cm; Wt 83.0 kg
[2017-06-17 10:00] VITALS: BP 161/55
== END 2017-06-17 10:01 | disposition home or self-care (01) ==
LOC: EME → EDBD 06:12 → EME 06:12
DX: S80.10XA Contusion of unspecified lower leg, initial encounter (principal); W18.30XA Fall on same level, unspecified, initial encounter; Y92.480 Sidewalk as the place of occurrence of the external cause; R29.6 Repeated falls; Z89.512 Acquired absence of left leg below knee; E78.5 Hyperlipidemia, unspecified; I25.2 Old myocardial infarction; I10 Essential (primary) hypertension; E11.9 Type 2 diabetes mellitus without complications; Z79.84 Long term (current) use of oral hypoglycemic drugs; F17.200 Nicotine dependence, unspecified, uncomplicated; Z88.6 Allergy status to analgesic agent
CPT/HCPCS: 99281; 99282

== ENCOUNTER 2017-06-19 10:18 | Emergency (ER) | payer OTHER ==
[~2017-06-19] VITALS: Ht 182.9 cm; Wt 80.9 kg
[2017-06-19 11:40] LABS: BASOPHIL COUNT 0.1 K/uL (0-0.1); EOSINOPHIL (%) 2.9 % (0-5); EOSINOPHIL COUNT 0.2 K/uL (0-0.3); HEMATOCRIT 38.8 % (38.0-50.0); IMMATURE GRANULOCYTE (%) 0.3 % (0.0-0.7); INSTRUMENT ABS NEUTROPHIL CT 4.2 K/uL; LYMPHOCYTE COUNT 2.1 K/uL (1.0-2.8); MCH 28.9 PG (29.0-34.0); MCHC 34.3 G/DL (30.0-36.0); MCV 84.3 FL (86-99); MEAN PLAT.VOLUME 11.8 uM^3 (9.0-12.4); MONOCYTE (%) 9.6 % (3-12); MONOCYTE COUNT 0.7 K/uL (0-0.8); NEUTROPHIL (%) 57.9 % (45-76); NEUTROPHIL COUNT 4.2 K/uL (1.8-6.4); PLATELET COUNT 175 K/uL (156-360); RBC DIS.WIDTH-CV 12.3 % (11.8-14.6); RBC DIS.WIDTH-SD 37.1 % (39-53); WHITE BLOOD COUNT 7.3 K/uL (4.1-10.2)
[2017-06-19 11:51] LABS: CHLORIDE 100 mEq/L (99-109); POTASSIUM 4.3 mEq/L (3.7-5.4); SODIUM 134 mEq/L (136-147)
[2017-06-19 11:55] LABS: ANION GAP 12 MEQ/L (2-14)
[2017-06-19 11:56] LABS: TOTAL BILIRUBIN 0.5 mg/dL (0.0-1.0)
[2017-06-19 11:57] LABS: ALKALINE PHOSPHATASE 77 IU/L (3-129); GFR ESTIMATE (CALCULATED) 59 mL/min/; SERUM ETHYL ALCOHOL < 10 mg/dL
[2017-06-19 11:59] LABS: UREA NITROGEN (BUN) 26 mg/dL (9-23)
[2017-06-19 12:37] LABS: GLUCOSE 513 mg/dL (70-99)
[2017-06-19 14:28] LABS: POINT-OF-CARE METER ID UU14100415
[2017-06-19 15:25] VITALS: BP 145/68
[2017-06-21 10:42] LABS: POINT-OF-CARE METER ID UU13113778
== END 2017-06-19 15:51 | disposition home or self-care (01) ==
LOC: EME 10:18
PROVIDERS: Emergency Medicine
DX: M79.671 Pain in right foot (principal); S90.31XA Contusion of right foot, initial encounter; W18.30XA Fall on same level, unspecified, initial encounter; R29.6 Repeated falls; Z91.81 History of falling; R10.9 Unspecified abdominal pain; R11.2 Nausea with vomiting, unspecified; E11.9 Type 2 diabetes mellitus without complications; Z79.84 Long term (current) use of oral hypoglycemic drugs; Z89.512 Acquired absence of left leg below knee; Z85.028 Personal history of other malignant neoplasm of stomach; Z86.14 Personal history of Methicillin resistant Staphylococcus aureus infection; F17.200 Nicotine dependence, unspecified, uncomplicated
CPT/HCPCS: 73590; 73610; 73630; 80053; 82948; 85025; 99281; 99283; G0480

== ENCOUNTER 2017-06-20 14:25 | Emergency (ER) | payer OTHER ==
[~2017-06-20] VITALS: Ht 185.4 cm; Wt 80.9 kg
[2017-06-20 16:20] LABS: CHLORIDE 102 mEq/L (99-109); SODIUM 136 mEq/L (136-147)
[2017-06-20 16:23] LABS: ANION GAP 12 MEQ/L (2-14)
[2017-06-20 16:24] LABS: GLUCOSE 408 mg/dL (70-99)
[2017-06-20 16:26] LABS: GFR ESTIMATE (CALCULATED) > 59 mL/min/
[2017-06-20 16:27] LABS: UREA NITROGEN (BUN) 17 mg/dL (9-23)
[2017-06-20 19:00] VITALS: BP 150/67
[2017-06-21 10:36] LABS: POINT-OF-CARE METER ID UU13113747
[2017-06-21 10:36] LABS: POINT-OF-CARE METER ID UU13113747
== END 2017-06-20 19:09 | disposition home or self-care (01) ==
LOC: EME 14:25
PROVIDERS: Emergency Medicine
DX: E11.65 Type 2 diabetes mellitus with hyperglycemia (principal); W19.XXXA Unspecified fall, initial encounter; E78.5 Hyperlipidemia, unspecified; I10 Essential (primary) hypertension; J45.909 Unspecified asthma, uncomplicated; I25.2 Old myocardial infarction; Z89.512 Acquired absence of left leg below knee; Z79.4 Long term (current) use of insulin; Z79.84 Long term (current) use of oral hypoglycemic drugs; F17.200 Nicotine dependence, unspecified, uncomplicated
CPT/HCPCS: 80048; 82948; 99281; 99284; J1815; J7030

== ENCOUNTER 2017-06-21 13:06 | Emergency (ER) | payer OTHER ==
[~2017-06-21] VITALS: Ht 170.2 cm; Wt 78.2 kg
[2017-06-21 14:04] LABS: POINT-OF-CARE METER ID UU13113778
[2017-06-21 15:46] VITALS: BP 138/67
== END 2017-06-21 15:49 | disposition left against medical advice (07) ==
LOC: EME 13:06
DX: S20.211A Contusion of right front wall of thorax, initial encounter (principal); S80.11XA Contusion of right lower leg, initial encounter; S96.911A Strain of unspecified muscle and tendon at ankle and foot level, right foot, initial encounter; W18.30XA Fall on same level, unspecified, initial encounter; Z91.14 Patient's other noncompliance with medication regimen; Z53.29 Procedure and treatment not carried out because of patient's decision for other reasons
CPT/HCPCS: 82948; 99281; 99284

== ENCOUNTER 2017-06-21 19:18 | Emergency (ER) | payer OTHER ==
[~2017-06-21] VITALS: Ht 182.9 cm; Wt 78.2 kg
[2017-06-21 20:48] VITALS: BP 106/46
== END 2017-06-21 20:48 | disposition home or self-care (01) ==
LOC: EXP 19:18 → EME 19:18 → EXP 20:48
DX: Z04.3 Encounter for examination and observation following other accident (principal); Z88.6 Allergy status to analgesic agent
CPT/HCPCS: 99281; 99283

== ENCOUNTER 2017-06-24 22:57 | Emergency (ER) | payer OTHER ==
[~2017-06-24] VITALS: Ht 182.9 cm; Wt 80.9 kg
[2017-06-25 00:26] VITALS: BP 132/86
[2017-06-26] MEDS ORDERED: TYLENOL EXTRA500 MG PO (19:44)
== END 2017-06-25 00:27 | disposition home or self-care (01) ==
LOC: EME 22:57
DX: S80.11XA Contusion of right lower leg, initial encounter (principal); S96.911A Strain of unspecified muscle and tendon at ankle and foot level, right foot, initial encounter; S20.211A Contusion of right front wall of thorax, initial encounter; S60.221A Contusion of right hand, initial encounter; R10.9 Unspecified abdominal pain; M79.642 Pain in left hand; W18.30XA Fall on same level, unspecified, initial encounter; E11.9 Type 2 diabetes mellitus without complications; Z79.4 Long term (current) use of insulin; Z89.512 Acquired absence of left leg below knee; F17.200 Nicotine dependence, unspecified, uncomplicated
CPT/HCPCS: 71010; 73130; 73590; 73630; 99281; 99283

== ENCOUNTER 2017-06-26 18:37 | Emergency (ER) | payer OTHER ==
[~2017-06-26] VITALS: Ht 182.9 cm; Wt 80.9 kg
[2017-06-26 18:41] VITALS: BP 158/65
[2017-06-26] MEDS ORDERED: TYLENOL EXTRA500 MG PO (19:44)
== END 2017-06-26 19:58 | disposition home or self-care (01) ==
LOC: EME 18:37
DX: S80.211A Abrasion, right knee, initial encounter (principal); M25.562 Pain in left knee; M54.9 Dorsalgia, unspecified; W18.39XA Other fall on same level, initial encounter; Z89.512 Acquired absence of left leg below knee; E11.9 Type 2 diabetes mellitus without complications; Z79.84 Long term (current) use of oral hypoglycemic drugs
CPT/HCPCS: 99281; 99283

== ENCOUNTER 2017-06-28 15:04 | Emergency (ER) | payer OTHER ==
[~2017-06-28] VITALS: Ht 182.9 cm; Wt 80.0 kg
[2017-06-28 18:00] VITALS: BP 159/71
== END 2017-06-28 18:01 | disposition home or self-care (01) ==
LOC: EME 15:04
DX: M79.605 Pain in left leg (principal); M79.604 Pain in right leg; E11.9 Type 2 diabetes mellitus without complications; Z72.0 Tobacco use
CPT/HCPCS: 99281; 99282

== ENCOUNTER 2017-06-29 17:29 | Emergency (ER) | payer OTHER ==
[~2017-06-29] VITALS: Ht 182.9 cm; Wt 80.0 kg
[2017-06-29 20:18] VITALS: BP 163/78
== END 2017-06-29 20:19 | disposition home or self-care (01) ==
LOC: EME 17:29
DX: G89.29 Other chronic pain (principal); M54.5 Low back pain; W18.30XA Fall on same level, unspecified, initial encounter; Z88.6 Allergy status to analgesic agent; F17.200 Nicotine dependence, unspecified, uncomplicated
CPT/HCPCS: 99281; 99283

== ENCOUNTER 2017-06-30 17:02 | Emergency (ER) | payer OTHER ==
[~2017-06-30] VITALS: Ht 182.9 cm; Wt 81.0 kg
[2017-06-30 18:33] VITALS: BP 134/63
== END 2017-06-30 18:33 | disposition home or self-care (01) ==
LOC: EME 17:02
DX: R29.6 Repeated falls (principal); Z59.0 Homelessness; Z89.512 Acquired absence of left leg below knee; E11.9 Type 2 diabetes mellitus without complications; E78.5 Hyperlipidemia, unspecified; I10 Essential (primary) hypertension
CPT/HCPCS: 99281; 99282

== ENCOUNTER 2017-06-30 23:27 | Emergency (ER) | payer OTHER ==
[~2017-06-30] VITALS: Ht 182.9 cm; Wt 81.0 kg
[2017-07-01 01:19] VITALS: BP 156/64
[2017-07-01 10:19] LABS: POINT-OF-CARE METER ID UU13113702
== END 2017-07-01 01:20 | disposition home or self-care (01) ==
LOC: EME 23:27
PROVIDERS: Emergency Medicine
DX: M79.1 Myalgia (principal); W18.30XA Fall on same level, unspecified, initial encounter; E11.65 Type 2 diabetes mellitus with hyperglycemia; Z79.84 Long term (current) use of oral hypoglycemic drugs; Z91.81 History of falling; R29.6 Repeated falls; F17.200 Nicotine dependence, unspecified, uncomplicated
CPT/HCPCS: 82948; 99281; 99283

== ENCOUNTER 2017-07-07 16:16 | Emergency (ER) | payer OTHER ==
[~2017-07-07] VITALS: Ht 182.9 cm; Wt 85.0 kg
[2017-07-07 16:53] VITALS: BP 146/67
[2017-07-07 19:19] LABS: MCH 28.9 PG (29.0-34.0); MCHC 33.8 G/DL (30.0-36.0); MCV 85.5 FL (86-99); MEAN PLAT.VOLUME 11.9 uM^3 (9.0-12.4); PLATELET COUNT 144 K/uL (156-360); RBC DIS.WIDTH-CV 12.4 % (11.8-14.6); RBC DIS.WIDTH-SD 38.9 % (39-53); RED BLOOD COUNT 4.91 M/uL (4.00-5.50); WHITE BLOOD COUNT 7.9 K/uL (4.1-10.2)
[2017-07-07 19:30] LABS: CHLORIDE 98 mEq/L (99-109); POTASSIUM 3.6 mEq/L (3.7-5.4); SODIUM 135 mEq/L (136-147)
[2017-07-07 19:34] LABS: ANION GAP 12 MEQ/L (2-14)
[2017-07-07 19:36] LABS: GFR ESTIMATE (CALCULATED) 54 mL/min/
[2017-07-07 19:37] LABS: UREA NITROGEN (BUN) 18 mg/dL (9-23)
[2017-07-07 19:46] LABS: GLUCOSE 535 mg/dL (70-99)
[2017-07-08 15:24] LABS: POINT-OF-CARE METER ID UU13113800
[2017-07-08 15:24] LABS: POINT-OF-CARE METER ID UU13113778
== END 2017-07-07 19:23 | disposition left against medical advice (07) ==
LOC: EME 16:16
PROVIDERS: Emergency Medicine; Nurse Practitioner Family
DX: R73.9 Hyperglycemia, unspecified (principal); Z53.21 Procedure and treatment not carried out due to patient leaving prior to being seen by health care provider
CPT/HCPCS: 80048; 82948; 85027; 99281; 99285

== ENCOUNTER 2017-07-11 23:39 | Inpatient (IN) | payer OTHER ==
[~2017-07-11] VITALS: Ht 180.3 cm; Wt 79.9 kg
[2017-07-11 23:55] LABS: BASOPHIL COUNT 0.1 K/uL (0-0.1); EOSINOPHIL (%) 1.5 % (0-5); EOSINOPHIL COUNT 0.2 K/uL (0-0.3); HEMATOCRIT 41.6 % (38.0-50.0); IMMATURE GRANULOCYTE (%) 0.6 % (0.0-0.7); IMMATURE GRANULOCYTE COUNT 0.1 K/uL; INSTRUMENT ABS NEUTROPHIL CT 9.7 K/uL; LYMPHOCYTE COUNT 1.5 K/uL (1.0-2.8); MCH 28.7 PG (29.0-34.0); MCHC 33.4 G/DL (30.0-36.0); MEAN PLAT.VOLUME 12.3 uM^3 (9.0-12.4); MONOCYTE COUNT 0.7 K/uL (0-0.8); NEUTROPHIL (%) 79.1 % (45-76); NEUTROPHIL COUNT 9.7 K/uL (1.8-6.4); PLATELET COUNT 155 K/uL (156-360); RBC DIS.WIDTH-CV 12.4 % (11.8-14.6); RBC DIS.WIDTH-SD 39.1 % (39-53); RED BLOOD COUNT 4.84 M/uL (4.00-5.50); WHITE BLOOD COUNT 12.2 K/uL (4.1-10.2)
[2017-07-12] VITALS (24 sets, daily range): BP systolic 0–126; BP diastolic 0–91
[2017-07-12 00:02] LABS: PROTHROMBIN TIME 10.8 SEC (10.2-12.9)
[2017-07-12 00:04] LABS: PTT 28.4 SEC (25-37)
[2017-07-12 00:06] LABS: AMYLASE 28 IU/L (1-118); CHLORIDE 97 mEq/L (99-109)
[2017-07-12 00:07] LABS: SODIUM 135 mEq/L (136-147)
[2017-07-12 00:10] LABS: ANION GAP 14 MEQ/L (2-14)
[2017-07-12 00:11] LABS: SERUM ETHYL ALCOHOL < 10 mg/dL
[2017-07-12 00:12] LABS: GFR ESTIMATE (CALCULATED) 46 mL/min/
[2017-07-12 00:13] LABS: UREA NITROGEN (BUN) 26 mg/dL (9-23)
[2017-07-12 00:15] LABS: LIPASE 16 U/L (1.0-51.0)
[2017-07-12 00:16] LABS: TROP-I INTERPRETATION POSITIVE
[2017-07-12 00:27] LABS: TROPONIN-I 1.37 ng/mL (0.0-0.30)
[2017-07-12 00:28] LABS: GLUCOSE 785 mg/dL (70-99)
[2017-07-12 03:20] LABS: POINT-OF-CARE METER ID UU13113748
[2017-07-12 03:27] LABS: METH RESISTANT S AUREUS PCR NEGATIVE (NEGATIVE)
[2017-07-12 03:29] LABS: PROBE CHECK PASS; SPECIMEN PROCESSING CONTROL PASS
[2017-07-12 05:43] LABS: TROP-I INTERPRETATION POSITIVE; TROPONIN-I 8.52 ng/mL (0.0-0.30)
[2017-07-12 05:56] LABS: CREATINE KINASE 248 IU/L (1-294); TOTAL CK 248 IU/L (1-294)
[2017-07-12 06:14] LABS: POINT-OF-CARE METER ID UU13113748; POINT-OF-CARE USER ID PHATLC
[2017-07-12 07:17] LABS: CK-MB 16.1 ng/mL (0.0-4.9)
[2017-07-12 08:18] LABS: BASOPHIL COUNT 0.1 K/uL (0-0.1); EOSINOPHIL (%) 0.5 % (0-5); EOSINOPHIL COUNT 0.1 K/uL (0-0.3); HEMATOCRIT 37.1 % (38.0-50.0); IMMATURE GRANULOCYTE (%) 0.4 % (0.0-0.7); INSTRUMENT ABS NEUTROPHIL CT 7.7 K/uL; LYMPHOCYTE COUNT 1.8 K/uL (1.0-2.8); MCH 29.7 PG (29.0-34.0); MCHC 34.5 G/DL (30.0-36.0); MCV 86.1 FL (86-99); MEAN PLAT.VOLUME 13.1 uM^3 (9.0-12.4); MONOCYTE (%) 8.8 % (3-12); MONOCYTE COUNT 0.9 K/uL (0-0.8); NEUTROPHIL COUNT 7.7 K/uL (1.8-6.4); PLATELET COUNT 150 K/uL (156-360); RBC DIS.WIDTH-CV 12.5 % (11.8-14.6); RBC DIS.WIDTH-SD 39.4 % (39-53); RED BLOOD COUNT 4.31 M/uL (4.00-5.50); WHITE BLOOD COUNT 10.5 K/uL (4.1-10.2)
[2017-07-12 10:19] LABS: HEMATOCRIT 37.6 % (38.0-50.0); MCV 85.1 FL (86-99)
[2017-07-12 10:21] LABS: Estimated Average Glucose 321 mg/dL (70-123); HEMOGLOBIN A1c (GLYCOHEMOGLOB) 12.8 % HGB (Below 5.7)
[2017-07-12 10:43] LABS: CREATINE KINASE 421 IU/L (1-294); TOTAL CK 421 IU/L (1-294)
[2017-07-12 10:48] LABS: CK-MB 17.8 ng/mL (0.0-4.9)
[2017-07-12 10:49] LABS: TROP-I INTERPRETATION POSITIVE
[2017-07-12 10:51] LABS: TROPONIN-I 16.64 ng/mL (0.0-0.30)
[2017-07-12 11:26] LABS: GFR ESTIMATE (CALCULATED) 59 mL/min/; HDL CHOLESTEROL 46 MG/DL (Desirable>=40); LDL CHOLESTEROL 181 mg/dL (Desirable<100); NON-HDL CHOLESTEROL 208 mg/dL (Desirable<160); TOTAL CHOLESTEROL 254 mg/dL (Desirable<200); TRIGLYCERIDES 135 MG/DL (Normal: <150); UREA NITROGEN (BUN) 27 mg/dL (9-23)
[2017-07-12 11:28] LABS: ANION GAP 16 MEQ/L (2-14); CHLORIDE 100 MEQ/L (99-109); POTASSIUM 4.4 MEQ/L (3.7-5.4); SODIUM 137 MEQ/L (136-147)
[2017-07-12 11:29] LABS: GLUCOSE 422 mg/dL (70-99)
[2017-07-12 11:39] LABS: CHLORIDE 104 mEq/L (99-109); POTASSIUM 3.7 mEq/L (3.7-5.4); SODIUM 138 mEq/L (136-147)
[2017-07-12 11:41] LABS: GLUCOSE 283 mg/dL (70-99)
[2017-07-12 11:43] LABS: ANION GAP 13 MEQ/L (2-14)
[2017-07-12 11:45] LABS: GFR ESTIMATE (CALCULATED) 59 mL/min/
[2017-07-12 11:46] LABS: UREA NITROGEN (BUN) 26 mg/dL (9-23)
[2017-07-12 12:26] LABS: POINT-OF-CARE METER ID UU14208751
[2017-07-12 13:46] LABS: POINT-OF-CARE METER ID UU14208751
[2017-07-12 14:55] LABS: POINT-OF-CARE METER ID UU14208751
[2017-07-12 15:57] LABS: POINT-OF-CARE METER ID UU13113731
[2017-07-12 16:09] LABS: CHLORIDE 102 MEQ/L (99-109); POTASSIUM 4.1 MEQ/L (3.7-5.4); SODIUM 137 MEQ/L (136-147)
[2017-07-12 16:30] LABS: ANION GAP 10 MEQ/L (2-14); GFR ESTIMATE (CALCULATED) > 59 mL/min/; GLUCOSE 288 mg/dL (70-99); SAMPLE HEMOLYSIS CHECK 0; SAMPLE ICTERIC CHECK 0; SAMPLE LIPEMIA CHECK 0; UREA NITROGEN (BUN) 27 mg/dL (9-23)
[2017-07-12 16:54] LABS: ADD MIUA? YES; BILIRUBIN NEGATIVE; BLOOD MODERATE; COLOR YELLOW ((YELLOW)); GLUCOSE (STRIP) >=500; KETONES NEGATIVE; LEUKOCYTES TRACE; NITRITE NEGATIVE; PROTEIN (STRIP) 30; UROBILINOGEN 0.2 MG/DL (0.2-1.0)
[2017-07-12 16:58] LABS: BACTERIA RARE /HPF; EPITHELIAL CELLS RARE /HPF; MUCUS TRACE /LPF; RED BLOOD CELLS 30-40 /HPF (0-5); UCUL ADDED? NO; WHITE BLOOD CELLS 0-5 /HPF (0-5)
[2017-07-12 17:23] LABS: ADD MEDTOX COMMENT Y; AMPHETAMINE NEGATIVE (500 ng/mL); BARBITURATES NEGATIVE (200 ng/mL); BENZODIAZEPINES PRESUMPTIVE POSITIVE (150 ng/mL); COCAINE NEGATIVE (150 ng/mL); INTERNAL CONTROLS VALID? YES; METHADONE NEGATIVE (200 ng/mL); METHAMPHETAMINE NEGATIVE (500 ng/mL); OPIATES (MORPHINE) NEGATIVE (100 ng/mL); OXYCODONE NEGATIVE (100 ng/mL); PHENCYCLIDINE NEGATIVE (25 ng/mL); PROPOXYPHENE NEGATIVE (300 ng/mL); THC CANNABINOIDS NEGATIVE (50 ng/mL); TRICYCLIC ANTIDEPRESSANTS NEGATIVE (300 ng/mL)
[2017-07-12 17:37] LABS: POINT-OF-CARE METER ID UU13113731
[2017-07-12 17:54] LABS: BENZODIAZEPINES, URINE SCREEN POSITIVE (200 ng/mL)
[2017-07-12 18:25] LABS: ANION GAP 7 MEQ/L (2-14); CHLORIDE 105 MEQ/L (99-109); GFR ESTIMATE (CALCULATED) > 59 mL/min/; POTASSIUM 3.8 MEQ/L (3.7-5.4); SAMPLE HEMOLYSIS CHECK 0; SAMPLE ICTERIC CHECK 0; SAMPLE LIPEMIA CHECK 0; SODIUM 140 MEQ/L (136-147); UREA NITROGEN (BUN) 26 mg/dL (9-23)
[2017-07-12 18:36] LABS: TROP-I INTERPRETATION POSITIVE; TROPONIN-I 9.75 ng/mL (0.0-0.30)
[2017-07-12 18:41] LABS: GLUCOSE 104 mg/dL (70-99)
[2017-07-12 18:44] LABS: POINT-OF-CARE METER ID UU14208751
[2017-07-12 18:57] LABS: CREATINE KINASE 251 IU/L (1-294); TOTAL CK 251 IU/L (1-294)
[2017-07-12 19:15] LABS: POINT-OF-CARE METER ID UU14208751
[2017-07-12 20:02] LABS: POINT-OF-CARE METER ID UU13113731; POINT-OF-CARE USER ID PHATLC
[2017-07-12 20:48] LABS: CK-MB 12.6 ng/mL (0.0-4.9)
[2017-07-12 21:23] LABS: POINT-OF-CARE METER ID UU13113731; POINT-OF-CARE USER ID PHATLC
[2017-07-12 22:26] LABS: POINT-OF-CARE METER ID UU13113731; POINT-OF-CARE USER ID PHATLC
[2017-07-12 23:31] LABS: POINT-OF-CARE METER ID UU13113731
[2017-07-13] VITALS (24 sets, daily range): BP systolic 93–125; BP diastolic 47–74
[2017-07-13 00:17] LABS: POINT-OF-CARE METER ID UU13113731
[2017-07-13 00:53] LABS: CHLORIDE 106 mEq/L (99-109); POTASSIUM 4.4 mEq/L (3.7-5.4); SODIUM 141 mEq/L (136-147)
[2017-07-13 00:57] LABS: ANION GAP 12 MEQ/L (2-14)
[2017-07-13 00:58] LABS: GLUCOSE 170 mg/dL (70-99)
[2017-07-13 00:59] LABS: GFR ESTIMATE (CALCULATED) 59 mL/min/
[2017-07-13 01:00] LABS: UREA NITROGEN (BUN) 23 mg/dL (9-23)
[2017-07-13 02:52] LABS: POINT-OF-CARE METER ID UU13113731; POINT-OF-CARE USER ID PHATLC
[2017-07-13 06:11] LABS: POINT-OF-CARE METER ID UU13113731; POINT-OF-CARE USER ID PHATLC
[2017-07-13 06:23] LABS: ANION GAP 9 MEQ/L (2-14); CHLORIDE 103 MEQ/L (99-109); GFR ESTIMATE (CALCULATED) 59 mL/min/; POTASSIUM 4.7 MEQ/L (3.7-5.4); SAMPLE HEMOLYSIS CHECK 0; SAMPLE ICTERIC CHECK 0; SAMPLE LIPEMIA CHECK 0; SODIUM 137 MEQ/L (136-147); UREA NITROGEN (BUN) 27 mg/dL (9-23)
[2017-07-13 06:24] LABS: GLUCOSE 261 mg/dL (70-99)
[2017-07-13 10:50] LABS: POINT-OF-CARE METER ID UU14208751
[2017-07-13 12:57] LABS: ANION GAP 13 MEQ/L (2-14); CHLORIDE 102 MEQ/L (99-109); GFR ESTIMATE (CALCULATED) 50 mL/min/; GLUCOSE 363 mg/dL (70-99); POTASSIUM 5.2 MEQ/L (3.7-5.4); SAMPLE HEMOLYSIS CHECK 0; SAMPLE ICTERIC CHECK 0; SAMPLE LIPEMIA CHECK 0; SODIUM 136 MEQ/L (136-147); UREA NITROGEN (BUN) 32 mg/dL (9-23)
[2017-07-13 15:54] LABS: POINT-OF-CARE METER ID UU14208751
[2017-07-13 17:28] LABS: POINT-OF-CARE METER ID UU14208751
[2017-07-13 22:14] LABS: POINT-OF-CARE METER ID UU14208751; POINT-OF-CARE USER ID PHATLC
[2017-07-14] VITALS (17 sets, daily range): BP systolic 91–113; BP diastolic 55–73
[2017-07-14 02:54] LABS: POINT-OF-CARE METER ID UU14174217; POINT-OF-CARE USER ID PHATLC
[2017-07-14 06:08] LABS: POINT-OF-CARE METER ID UU14174217; POINT-OF-CARE USER ID PHATLC
[2017-07-14 08:39] LABS: BASE EXCESS 1.5 mEq/L (-3 to +3); BICARBONATE 23.9 mEq/L (22-26); CARBOXY HGB 1.8 % (0-5); COMMENTS - BLOOD GASES C+; METHEMOGLOBIN 1.2 % (0-1.5); O2 FLOW 2 L/MIN; PCO2 30 mm Hg (35-45); PO2 70 mm Hg (80-100); SITE LB; pH 7.51 (7.35-7.45)
[2017-07-14 08:40] LABS: DEVICE NC; TOTAL RESP RATE 20 resp/min
[2017-07-14 08:49] LABS: EOSINOPHIL (%) 1.2 % (0-5); EOSINOPHIL COUNT 0.2 K/uL (0-0.3); IMMATURE GRANULOCYTE (%) 0.6 % (0.0-0.7); IMMATURE GRANULOCYTE COUNT 0.1 K/uL; INSTRUMENT ABS NEUTROPHIL CT 7.6 K/uL; LYMPHOCYTE COUNT 3.1 K/uL (1.0-2.8); MCH 28.6 PG (29.0-34.0); MCHC 32.8 G/DL (30.0-36.0); MCV 87.2 FL (86-99); MEAN PLAT.VOLUME 12.3 uM^3 (9.0-12.4); MONOCYTE COUNT 1.4 K/uL (0-0.8); NEUTROPHIL (%) 61.6 % (45-76); NEUTROPHIL COUNT 7.6 K/uL (1.8-6.4); PLATELET COUNT 165 K/uL (156-360); RBC DIS.WIDTH-CV 13.2 % (11.8-14.6); RED BLOOD COUNT 4.13 M/uL (4.00-5.50); WHITE BLOOD COUNT 12.4 K/uL (4.1-10.2)
[2017-07-14 09:19] LABS: ANION GAP 13 MEQ/L (2-14); CHLORIDE 101 MEQ/L (99-109); GFR ESTIMATE (CALCULATED) 50 mL/min/; POTASSIUM 4.4 MEQ/L (3.7-5.4); SAMPLE HEMOLYSIS CHECK 0; SAMPLE ICTERIC CHECK 0; SAMPLE LIPEMIA CHECK 0; SODIUM 136 MEQ/L (136-147); UREA NITROGEN (BUN) 38 mg/dL (9-23)
[2017-07-14 09:20] LABS: GLUCOSE 159 mg/dL (70-99)
[2017-07-14 10:49] LABS: POINT-OF-CARE METER ID UU14208751
[2017-07-14] MEDS ORDERED: ACID CONTROLLER20 MG PO (12:06)
[2017-07-14] MEDS ORDERED: NOVOLOG 10100 UNITS/ SC (12:08)
[2017-07-14 14:17] LABS: POINT-OF-CARE METER ID UU14208751
== END 2017-07-14 17:08 | disposition short-term general hospital (02) | DRG 270 ==
LOC: EME 23:39 → 4WEST 07-12 00:33 → EME 07-12 00:33 → CATH 07-12 00:35 → ENRESERV 07-12 01:37 → 4WEST 07-12 01:38 → 2SOUTH 07-12 01:38 → ENRESERV 07-12 01:40 → 4WEST 07-12 01:48
PROVIDERS: Emergency Medicine; Internal Medicine Cardiovascular Disease; Specialist
PROC: 4A023N7 Measurement of Cardiac Sampling and Pressure, Left Heart, Percutaneous Approach (ICD-10-PCS; principal; 2017-07-12)
PROC: 5A02210 Assistance with Cardiac Output using Balloon Pump, Continuous (ICD-10-PCS; principal; 2017-07-12)
PROC: B2111ZZ Fluoroscopy of Multiple Coronary Arteries using Low Osmolar Contrast (ICD-10-PCS; principal; 2017-07-12)
PROC: B2151ZZ Fluoroscopy of Left Heart using Low Osmolar Contrast (ICD-10-PCS; principal; 2017-07-12)
DX: I21.09 ST elevation (STEMI) myocardial infarction involving other coronary artery of anterior wall (principal); J96.91 Respiratory failure, unspecified with hypoxia; I25.10 Atherosclerotic heart disease of native coronary artery without angina pectoris; R57.0 Cardiogenic shock; I35.0 Nonrheumatic aortic (valve) stenosis; I25.5 Ischemic cardiomyopathy; E11.22 Type 2 diabetes mellitus with diabetic chronic kidney disease; E11.65 Type 2 diabetes mellitus with hyperglycemia; I12.9 Hypertensive chronic kidney disease with stage 1 through stage 4 chronic kidney disease, or unspecified chronic kidney disease; N18.9 Chronic kidney disease, unspecified; E11.51 Type 2 diabetes mellitus with diabetic peripheral angiopathy without gangrene; E87.2 Acidosis; E78.5 Hyperlipidemia, unspecified; J81.1 Chronic pulmonary edema; F17.200 Nicotine dependence, unspecified, uncomplicated; J45.909 Unspecified asthma, uncomplicated; I74.9 Embolism and thrombosis of unspecified artery; F31.9 Bipolar disorder, unspecified; E11.610 Type 2 diabetes mellitus with diabetic neuropathic arthropathy; E11.40 Type 2 diabetes mellitus with diabetic neuropathy, unspecified; Z89.411 Acquired absence of right great toe; Z79.4 Long term (current) use of insulin; Z89.512 Acquired absence of left leg below knee; Z87.440 Personal history of urinary (tract) infections; I25.2 Old myocardial infarction; Z91.19 Patient's noncompliance with other medical treatment and regimen; Z79.82 Long term (current) use of aspirin; Z85.028 Personal history of other malignant neoplasm of stomach; Z91.14 Patient's other noncompliance with medication regimen
CPT/HCPCS: 36600; 71010; 80048; 80048 91; 80061; 81003; 82150; 82550; 82550 91; 82553; 82803; 82948; 83036; 83605; 83690; 83735; 84100; 84484; 84999; 85014; 85018; 85025; 85347; 85610; 85730; 86850; 86900; 86901; 87641; 93005; 93306; 94799; 99281; 99285; C1769; C1887; C1894; G0480; J0461; J1644; J1815; J1940; J2250; J2270; J2405; J3010; J7030; J7050